=== PATIENT | male | born 1995 | race African-American/Black ===

== ENCOUNTER 2023-06-29 18:29 | Emergency (ER) | payer OTHER, SELFPAY ==
[2023-06-29 19:13] VITALS: BP 138/97; PULSE 85; RESP 14; TEMP 36.4; O2SAT 100
--- NOTE | 2023-06-29 21:28 | PC.NURSE ---
Patient called from triage. No answer
--- NOTE | 2023-06-29 21:32 | PC.NURSE ---
Patient called from triage area to be taken back to room again. No answer
== END 2023-06-29 21:28 | disposition left against medical advice (07) ==
DX: R10.9 Unspecified abdominal pain (principal)
CPT/HCPCS: 99199

== ENCOUNTER 2024-02-28 09:44 | Emergency (ER) | payer OTHER, MEDICAID, SELFPAY ==
[2024-02-28 09:47] VITALS: BP 132/88; PULSE 80; RESP 18; TEMP 36.4; O2SAT 98
--- NOTE | 2024-02-28 09:49 | ED.BURNSMOKE ---
HPI - Burn/Smoke Inhalation General Chief complaint: Burn/Smoke Inhalation Stated complaint: burn to wrist Time Seen by Provider: 02/28/24 09:49 Source: patient Mode of arrival: ambulatory Limitations: no limitations History of Present Illness HPI Narrative: Sarbjit is a 28-year-old male patient presenting to the emergency room with complaints of a burn to his right wrist. He reports he was working at [email or web address] and trying to push a bar down and stuck his hand/wrist in hot water. Was wearing gloves at the time. Has a second-degree circumferential burn around the right wrist with small blisters. Rating pain 10/10. Did apply some burn cream to the area but that has not help his pain. Related Data Allergies Allergy/AdvReac Type Severity Reaction Status Date / Time No Known Allergies Allergy Verified 02/28/24 09:49 Review of Systems Review of Systems: Pertinent positives per HPI. Patient denies any fever, chills, rash, headache, visual changes, dizziness, cough, runny nose, sore throat, shortness of breath, chest pain, palpitations, nausea, vomiting, diarrhea, constipation, abdominal pain, or any urinary issues. PMFSH Comments At the time of my signature, I reviewed and agree with the nursing past medical, surgical, social, and family history. There is no relevant family history pertinent to the patient complaint. Exam Narrative: General: Well-developed, well nourished, in no apparent distress Head: Normocephalic, atraumatic. Cardio: Regular rate and rhythm, s1 and s2 normal, no murmur appreciated. Resp: Clear to auscultation bilaterally, no rhonchi, rales, wheezing or rubs. Integumentary: [place], warm, and dry, intact without lesion, second-degree circumferential for to the right wrist with small blisters noted to the volar aspect of the wrist, tender to palpation over this area Course Course Emergency Course: Portions of this record may have been created with voice recognition software. Vital Signs Vital signs: Vital Signs Temperature 36.4 C L 02/28/24 09:47 Pulse Rate 80 02/28/24 09:47 Respiratory Rate 18 02/28/24 09:47 Blood Pressure 132/88 02/28/24 09:47 Pulse Oximetry 98 02/28/24 09:47 Oxygen Delivery Room Air 02/28/24 09:47 Temperature 36.4 C L 02/28/24 09:47 Pulse Rate 80 02/28/24 09:47 Respiratory Rate 18 02/28/24 09:47 Blood Pressure 132/88 02/28/24 09:47 Pulse Oximetry 100 02/28/24 09:54 Oxygen Delivery Room Air 02/28/24 09:54 Vital signs reviewed MDM - Burn/Smoke Inhalation MDM Narrative Medical decision making narrative: At the time of visit patient is resting comfortably on the exam table. Patient appears to be nontoxic. Discussed placing wrist under cold water until burning stops. Patient did not tolerate this very well. Medications given: Silvadene dressing and hydrocodone 5/325 mg Plan: Prescription for [place] was sent to the pharmacy. Supportive measures were discussed with the patient and they voiced understanding discharge instructions and agrees to treatment plan. Return precautions reviewed Discharge Plan Discharge Clinical Impression: Second degree burn of right wrist Patient Disposition: Home, Self-Care Condition: Stable Instructions: Antibiotic Form, Second-Degree Burn (ED) Additional Instructions: Apply Silvadene dressing to the wound daily x7 days-use nonstick bandage-(Telfa) Do not pop the blisters Take [place] as prescribed for pain Wash wound daily with soap and water, pat dry, and then apply Silvadene dressing Watch for signs and symptoms of infection-fever not controlled by Tylenol or Motrin, redness, swelling, increase in pain, purulent discharge, or streaking Follow-up with your PCP as needed Prescriptions: New hydrocodone-acetaminophen 5-325 mg tablet 1 tablet PO Q6H PRN (Reason: pain) Qty: 12 0RF silver sulfadiazine [Silvadene] 1 % cream 1 applic topical DAILY 7 Days Qty: 50 0RF
[2024-02-28 09:54] VITALS: O2SAT 100
[2024-02-28] MEDS: HYDROcodone/acetaminophen (*CRX) 5-325 MG TABLET 1 TAB PO (10:00)
[2024-02-28] MEDS: SILVER SULFADIAZINE 1% CR 50 GM JAR (*BKC) 1 APPLIC TOPICAL (10:00)
== END 2024-02-28 10:18 | disposition home or self-care (01) ==
LOC: ANHED 10:09
PROVIDERS: Emergency Provider Nurse Practitioner Family; PCP Internal Medicine
DX: T23.271A Burn of second degree of right wrist, initial encounter (principal); T31.0 Burns involving less than 10% of body surface; X11.8XXA Contact with other hot tap-water, initial encounter
CPT/HCPCS: 99283; A9270

== ENCOUNTER 2025-11-14 15:14 | Emergency (ER) | payer SELFPAY ==
[2025-11-14 15:21] VITALS: BP 129/81; PULSE 86; RESP 16; TEMP 36.5; O2SAT 100
--- NOTE | 2025-11-14 15:48 | ED.EAR ---
HPI - Ear Problem General Chief complaint: Ear Stated complaint: Ear Pain/Dizzy Time Seen by Provider: 11/14/25 15:30 Source: patient and RN notes reviewed Mode of arrival: ambulatory Limitations: no limitations History of Present Illness HPI Narrative: 30-year-old male patient presents to the [facility] complaining of bilateral ear pain for 3 days. Patient says worse on the right than the left. Patient denies any other upper respiratory symptoms, fevers, eczema chills, cough, chest pain breathing problems. Patient does report some dizziness and headache. Patient unable to describe the dizziness. Patient has not tried any [id number] help with symptoms. Related Data Allergies Allergy/AdvReac Type Severity Reaction Status Date / Time No Known Allergies Allergy Verified 11/14/25 15:24 Review of Systems Review of Systems: CONSTITUTIONAL: Denies fever, chills, or sweats. EYES: Denies visual changes, redness, or discharge. ENT: Denies rhinorrhea, congestion, sore throat,. Positive for otalgia. CARDIOVASCULAR: Denies chest pain, palpitations, lightheadedness, or edema. Positive for dizziness RESPIRATORY: Denies cough or dyspnea. GASTROINTESTINAL: Denies abdominal pain, nausea, vomiting, or diarrhea. GENITOURINARY: Denies dysuria or hematuria. SKIN: Denies rash or itching. MUSCULOSKELETAL: Denies back pain, joint pain, or myalgia. NEUROLOGIC: Denies headache, numbness, or weakness. PSYCHIATRIC: Denies anxiety or depression. All other systems reviewed are negative, except as documented in HPI. PMFSH Comments At the time of my signature, I reviewed and agree with the nursing past medical, surgical, social, and family history. There is no relevant family history pertinent to the patient complaint. Exam Narrative: GENERAL: This is a well-nourished, well-developed adult, in no apparent distress. They are non ill-appearing, nontoxic appearing. HEAD: normocephalic, atraumatic. EYES: Sclera clear/white. Conjunctiva normal. Vision is grossly intact. Extraocular movements intact. Pupils PERRLA no nystagmus. EARS: External ears normal, auditory canals clear and without drainage, left TM normal without perforation. Right TM erythematous with suppuration no perforation. Hearing grossly intact. NOSE: External nose normal with no obvious nasal discharge, nasal turbinates without redness, no rhinorrhea. THROAT: Mucous membranes moist, posterior pharynx clear, without erythema or swelling. Uvula midline. NECK: Neck supple, non-tender without lymphadenopathy, masses or thyromegaly. CARDIOVASCULAR: Regular rate and rhythm without murmurs, gallops, or rubs. RESPIRATORY: Clear to auscultation. Breath sounds equal bilaterally. No wheezes, rales, or rhonchi. SKIN: warm, Dry, intact with no suspicious lesions or rash, good texture and turgor. NEURO: awake, alert, and oriented to person, place and time. There were no obvious focal neurologic abnormalities. EXTREMITIES: No joint tenderness, effusion, or edema noted. BACK: Nontender without deformity. Course Course Level of Care: Express Care Visit Vital Signs Vital signs: Vital Signs Temperature 97.7 F 11/14/25 15:21 Pulse Rate 86 11/14/25 15:21 Respiratory Rate 16 11/14/25 15:21 Blood Pressure 129/81 11/14/25 15:21 Pulse Oximetry 100 11/14/25 15:21 Temperature 97.7 F 11/14/25 15:21 Pulse Rate 86 11/14/25 15:21 Respiratory Rate 16 11/14/25 15:21 Blood Pressure 129/81 11/14/25 15:21 Pulse Oximetry 100 11/14/25 15:21 [facility] Narrative Medical decision making narrative: Appears patient likely has a right-sided otitis media. Will treat with amoxicillin. Discussed Supportive care. Discussed physical exam findings. Advised supportive measures and signs/symptoms to go to the ER. Pt is appropriate for outpt treatment and f/u. Differential Diagnosis Differential Diagnosis: Differential diagnostic considerations for upper respiratory infection include upper respiratory infection, croup, otitis media, sinusitis, viral infection, bronchitis, influenza, pharyngitis, strep, uvulitis, vertigo, dizziness. Critical Care Time Critical Care Time Critical Care Time: No Discharge Plan Discharge Clinical Impression: Otitis media Qualifiers: Otitis media type: suppurative Chronicity: acute Laterality: right Recurrence: non-recurrent Spontaneous tympanic membrane rupture: without spontaneous rupture Qualified Code(s): H66.001 - Acute suppurative otitis media without spontaneous rupture of ear drum, right ear Patient Disposition: Home Condition: Stable Instructions: Antibiotic Form, Ear Infection (ED) Additional Instructions: Take antibiotics as directed. Symptomatic treatment includes: rest, fluids, and increase humidity of the air at home. Take the Tylenol and ibuprofen as directed. Please schedule a follow-up visit with your personal physician for further evaluation and treatment within 3-5days. If your symptoms persist, change or worsen significantly, go to the emergency department for further evaluation. Patient Language: Citizen Of [place] Prescriptions: New amoxicillin 875 mg tablet 875 mg PO Q12H 7 Days Qty: 14 0RF acetaminophen [Tylenol Extra Strength] 500 mg tablet 1,000 mg PO Q6H PRN (Reason: fever or pain) Qty: 20 0RF ibuprofen 800 mg tablet 800 mg PO Q6H PRN (Reason: pain) Qty: 20 0RF Follow-up/Referrals: PHYSICIAN,COVERING MACHINE OPERATOR [Primary Care Provider, Internal Medicine] Stand Alone Forms: Work/School Release IP Time of Disposition: 15:45
== END 2025-11-14 15:49 | disposition home or self-care (01) ==
DX: H66.001 Acute suppurative otitis media without spontaneous rupture of ear drum, right ear (principal)
CPT/HCPCS: 99213; G0463